=== PATIENT | male | born 1965 | race Caucasian/White ===

== ENCOUNTER 2017-08-02 04:59 | Emergency (ER) | payer OTHER ==
[~2017-08-02] VITALS: Ht 170.2 cm; Wt 71.5 kg
[2017-08-02] VITALS (10 sets, daily range): BP systolic 105–158; BP diastolic 66–88; PULSE 84–110; RESP 16–18; TEMP 97.7–97.8; O2SAT 95–97
[~2017-08-02 04:59] MED LIST: CIPR500T4 PO; FLAG500T PO; LORTA5 PO; PRIL20CA PO
[2017-08-02] MEDS ORDERED: TETANUS/DIPHTHERIA TOXOID ADULT 0.5 ML VIAL IM ONE (05:30)
[2017-08-02] MEDS ORDERED: SODIUM CHLOR 0.9% 1000 ML INJ 1,000 ML IV ONE (05:30)
[2017-08-02] MEDS ORDERED: ceFAZolin 2 GM PREMIX 50 ML IV ONE (05:30)
[2017-08-02 05:36] LABS: AUTOMATED NEUTROPHIL # 5.2 TH/MM3 (1.8-7.7); BASOPHIL # 0.1 TH/MM3 (0-0.2); BASOPHIL % 0.8 % (0.0-2.0); EOSINOPHIL # 0.2 TH/MM3 (0-0.4); EOSINOPHIL % 2.1 % (0.0-4.0); HEMATOCRIT 43.4 % (39.0-51.0); HEMOGLOBIN 14.9 GM/DL (13.0-17.0); LYMPH % 26.5 % (9.0-44.0); LYMPHOCYTE # 2.2 TH/MM3 (1.0-4.8); MEAN CELL VOLUME 94.3 FL (80.0-100.0); MEAN CORPUSCULAR HEMOGLOBIN 32.3 PG (27.0-34.0); MEAN CORPUSCULAR HGB CONC 34.2 % (32.0-36.0); MONOCYTE # 0.5 TH/MM3 (0-0.9); NEUT % 64.6 % (16.0-70.0); PLATELET COUNT 304 TH/MM3 (150-450); RED CELL DISTRIBUTION WIDTH 13.3 % (11.6-17.2); WHITE BLOOD COUNT 8.2 TH/MM3 (4.0-11.0)
--- NOTE | 2017-08-02 05:41 | RADRPT ---
EXAM DATE: 08/02/2017 5:35 AM EDT AGE/SEX: 51 years / Male INDICATIONS: Fall. Right occipital laceration. CLINICAL DATA: This is the patient's initial encounter. Patient reports that signs and symptoms have been present for 1 day and indicates a pain score of 5/10. MEDICAL/SURGICAL HISTORY: Cerebrovascular disease. None. RADIATION DOSE: 59.01 CTDI (mGy) ; Patient motion COMPARISON: [facility] [place]RAIN [place]/O [place], 11/30/2010. . TECHNIQUE: CT of the head without contrast. Using automated exposure control and adjustment of the mA and/or kV according to patient size, radiation dose was kept as low as reasonably achievable to ob tain optimal diagnostic quality images. FINDINGS: Cerebrum: The ventricles are normal for age. No evidence of midline shift, mass lesion, hemorrhage or acute infarction. No extraaxial fluid collections are seen. Posterior Fossa: The cerebellum and brainstem are intact. The 4th ventricle is midline. The cerebe llopontine angle is unremarkable. Extracranial: Right posterior parietal scalp laceration and hematoma. Skin bc are present. Skull: The calvaria is intact. No evidence of skull fracture. CONCLUSION: 1. No bleed or other acute intracranial abnormality. 2. Right posterior parietal scalp contusion/laceration. Electronically signed by: Isaac Antony MD 08/02/2017 5:40 AM EDT
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
[2017-08-02 05:52] LABS: CALCIUM 8.7 MG/DL (8.5-10.1)
[2017-08-02 05:53] LABS: BICARBONATE 25.8 MEQ/L (21.0-32.0); MAGNESIUM 2.3 MG/DL (1.5-2.5)
--- NOTE | 2017-08-02 05:54 | RADRPT ---
EXAM DATE: 08/02/2017 5:41 AM EDT AGE/SEX: 51 years / Male INDICATIONS: Fall. Right occipital laceration. CLINICAL DATA: This is the patient's initial encounter. Patient reports that signs and symptoms have been present for 1 day and indicates a pain score of 5/10. MEDICAL/SURGICAL HISTORY: Cerebrovascular disease. None. RADIATION DOSE: 26.67 CTDI (mGy) COMPARISON: No prior [facility] exams available for comparison. TECHNIQUE: Contiguous axial images were obtained using helical multirow detector technique. The vol umetric data was post-processed with multiplanar reconstruction in oblique axial, sagittal, and coron al planes. Using automated exposure control and adjustment of the mA and/or kV according to patient s ize, radiation dose was kept as low as reasonably achievable to obtain optimal diagnostic quality [facility]. FINDINGS: There is no fracture or subluxation of the cervical spine. Vertebral bodies have normal height. Moderate disc space narrowing with small to moderate, broad but mostly right or central/foraminal dis c osteophyte complex seen at C5/C6. There is mild right foraminal stenosis. Emphysematous changes are seen of the visualized lung apices. There is 7 x 18 mm nodular scarring on the right. CONCLUSION: 1. Intact cervical spine. 2. Degenerative changes at C5/C6 with mild right foraminal stenosis. 3. Nodular area of the right lung apex, probably scarring. Bilateral upper lobe bullous emphysematou s changes are demonstrated. Six-month follow-up noncontrast chest CT recommended. Electronically signed by: Isaac Antony MD 08/02/2017 5:53 AM EDT
[2017-08-02 05:56] LABS: CREATININE 0.92 MG/DL (0.60-1.30)
[2017-08-02 06:03] LABS: PROTHROMBIN TIME - PATIENT 10.3 SEC (9.8-11.6)
[2017-08-02] MEDS ORDERED: ZOFR4TAB3 SL (06:54)
== END 2017-08-02 08:09 | disposition home or self-care (01) ==
LOC: PHED 04:59
DX: S01.01XA Laceration without foreign body of scalp, initial encounter (principal); W01.0XXA Fall on same level from slipping, tripping and stumbling without subsequent striking against object, initial encounter; F10.129 Alcohol abuse with intoxication, unspecified; Y90.8 Blood alcohol level of 240 mg/100 ml or more; J43.9 Emphysema, unspecified; K21.9 Gastro-esophageal reflux disease without esophagitis; F17.200 Nicotine dependence, unspecified, uncomplicated; Z86.73 Personal history of transient ischemic attack (TIA), and cerebral infarction without residual deficits; Z23 Encounter for immunization
CPT/HCPCS: 12032; 70450; 72125; 80048; 80307; 83735; 85025; 85610; 85730; 86850; 86900; 86901; 90471; 90714; 96365; 99284; J0690; J7030